=== PATIENT | female | born 1965 | race Caucasian/White ===

== ENCOUNTER 2018-04-22 10:32 | Outpatient (CLI) | payer MEDICAID ==
[~2018-04-22] VITALS: Ht 167.6 cm; Wt 66.7 kg
[2018-04-22] MEDS ORDERED: METOPROLOL SUCC25 MG ORAL (12:51)
[2018-04-22] MEDS ORDERED: ATORVASTATIN CA20 MG ORAL (12:51)
[2018-04-22] MEDS ORDERED: TAMSULOSIN HCL0.4 MG ORAL (12:51)
[2018-04-22] MEDS ORDERED: METFORMIN HCL500 M1 ORAL (12:51)
[2018-04-22] MEDS ORDERED: ASPIRIN EC81 MG ORAL (12:51)
--- NOTE | 2018-04-22 15:14 | GI Initial Consult Note ---
History of Present Illness General Date patient seen: Apr 22, 2018 Time patient seen: 15:08 Referring physician: HMO Reason for Consultation: G tube removal Present Illness HPI 52 year old male patient presents for GT removal today. 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 Pt seen, awake A&OIx4 NAD with no active s/sx of N/V/D. Patient is ambulatory, has unsteady gait but able to walk by himself. In addition, the patient complains of occasional constipation and rectal pain. Garcia catheter is present. Denies any unintentional weight loss or changes in dietary habits. No signs of abuse or neglect. Patient is a fall risk. Home Meds Reported Medications Tamsulosin Hcl (TAMSULOSIN HCL*) 0.4 Mg Cap.er.24h, 0.4 MG ORAL BEDTIME, CAP 04/22/18 Metoprolol Succinate* (METOPROLOL SUCCINATE*) 25 Mg Tab.er.24h, 25 MG ORAL DAILY , TAB 04/22/18 Metformin Hcl* (METFORMIN HCL*) 500 Mg Tablet, 500 MG ORAL TWICE A DAY, TAB 04/22/18 Atorvastatin Calcium* (ATORVASTATIN CALCIUM*) 20 Mg Tablet, 40 MG ORAL BEDTIME, TAB 04/22/18 Aspirin Ec* (ASPIRIN EC*) 81 Mg Tablet.dr, 81 MG ORAL DAILY, TAB 04/22/18 Med list reviewed/reconciled: Yes Allergies: Coded Allergies: No Known Allergies (Unverified , 04/22/18) Patient History PMH Narrative HTN CT HLD BPH DM Past Surgical History: Denies Past Surgical History: none Pertinent Family History: other - mother has DM Social History: Reports: smoking - quit, alcohol use - quit Review of Systems All Other Systems: negative except mentioned in HPI Physical Exam Sp02 EP Interpretation: reviewed, normal General Appearance: well appearing, no apparent distress, alert Head: normocephalic EENT: PERRL/EOMI, normal ENT inspection Neck: supple Respiratory: normal breath sounds, no respiratory distress Cardiovascular: normal rate Gastrointestinal: normal inspection, non tender, soft, normal bowel sounds, non -distended Rectal: deferred Genitourinary: no CVA tenderness Musculoskeletal: normal inspection, back normal Neurologic: normal inspection, alert, oriented x3, responsive Psychiatric: normal inspection, judgement/insight normal, memory normal Skin: normal inspection, normal color, no rash, warm/dry, palpation normal, well hydrated Lymphatic: normal inspection, no adenopathy GI: Plan Problems: (1) Constipation (2) PEG (percutaneous endoscopic gastrostomy) adjustment/replacement/removal Plan GT removed. patient instructed not to shower for 24 hours. cont bowel regime RTC prn Seen with Dr. Carl. Thank you for this patient referral. The patient was seen and examined at bedside and all new and available data was reviewed in the patients chart. I agree with the above findings, impression and plan. (Patient seen earlier today. Signature stamp does not reflect patient encounter time.). - MD Marline [facility] Apr 22, 2018 15:14
--- NOTE | 2018-04-22 19:30 | Consultation ---
See other Consultation note. MTDD
== END 2018-04-22 11:02 | disposition home or self-care (01) ==
LOC: PAN 10:32
DX: Z43.1 Encounter for attention to gastrostomy (principal); I25.2 Old myocardial infarction; I10 Essential (primary) hypertension; K59.00 Constipation, unspecified; E78.5 Hyperlipidemia, unspecified; E11.9 Type 2 diabetes mellitus without complications
CPT/HCPCS: 99201